=== PATIENT | male | born 1980 | race Hispanic/Latino ===

== ENCOUNTER 2017-09-16 19:45 | Emergency (ER) | payer OTHER ==
[2017-09-16 20:06] LABS: BASOPHILS % (AUTO) 0.4 % (0.0-5.0); EOSINOPHILS % (AUTO) 0.8 % (0.0-8.0); HEMATOCRIT 42.3 % (42-54); LYMPHOCYTES % (AUTO) 22.3 % (21.0-51.0); MEAN CORPUSCULAR HGB CONC 34.2 g/dL (32.0-36.0); MEAN CORPUSCULAR VOLUME 93.7 fL (79-99); MONOCYTES % (AUTO) 5.5 % (3.0-13.0); PLATELET COUNT (AUTO) 295 K/uL (130-400); RED BLOOD CELL COUNT(AUTO) 4.52 MIL/uL (4.50-6.20); RED CELL DISTRIBUTION WIDTH 13.9 % (11.0-15.5); WHITE BLOOD COUNT (AUTO) 8.8 K/uL (4.8-10.8)
[2017-09-16] MEDS ORDERED: NITROGLYCERIN 1GM/1 INCH PACKET TD ONE (20:08)
[2017-09-16] MEDS ORDERED: ASPIRIN 81MG TAB.CHEW ONE (20:08)
[2017-09-16 20:27] LABS: INR 0.96 (0.85-1.15); PARTIAL THROMBOPLASTIN TIME 30.3 SEC (26.3-35.5); PROTHROMBIN TIME 10.1 SEC (9.6-11.6)
[2017-09-16 20:39] LABS: ALBUMIN 4.1 g/dL (3.5-5.0); BILIRUBIN,TOTAL 0.4 mg/dL (0.2-1.0); CREATININE 1.2 mg/dL (0.5-1.5); TOTAL PROTEIN, SERUM 7.5 g/dL (6.0-8.3)
[2017-09-16 20:41] LABS: POTASSIUM 2.8 mmol/L (3.5-5.1)
[2017-09-16] MEDS ORDERED: SODIUM CHLORIDE 0.9% 1000ML 1,000 ML IV ONE (20:57)
[2017-09-16] MEDS ORDERED: POTASSIUM BICARB/CIT AC 25 MEQ TABLET.EFF ONE (20:57)
[2017-09-16 21:29] LABS: AMPHET/METH SCREEN,URINE NEGATIVE (NEGATIVE); BARBITURATE SCREEN, URINE NEGATIVE (NEGATIVE); BENZODIAZEPINES SCREEN,URINE NEGATIVE (NEGATIVE); CANNABINOID SCREEN,URINE NEGATIVE (NEGATIVE); COCAINE SCREEN,URINE NEGATIVE (NEGATIVE); OPIATE SCREEN,URINE NEGATIVE (NEGATIVE); PHENCYCLIDINE SCREEN,URINE NEGATIVE (NEGATIVE)
[2017-09-16] MEDS ORDERED: ACETAMINOPHEN 325 MG TAB ONE (23:24)
== END 2017-09-16 23:47 | disposition home or self-care (01) ==
LOC: EDH 19:45
DX: R07.89 Other chest pain (principal); E87.6 Hypokalemia; I10 Essential (primary) hypertension; J45.909 Unspecified asthma, uncomplicated; Z88.0 Allergy status to penicillin; Z72.0 Tobacco use
CPT/HCPCS: 36415; 71045; 80053; 80305; 82550; 82553; 83874; 84484 ×2; 85025; 85610; 85730; 93005 ×2; 94761; 99285; J7030

== ENCOUNTER 2019-05-26 23:29 | Emergency (ER) | payer OTHER ==
[2019-05-27] MEDS ORDERED: TETANUS/DIPHTHERIA TOXOID [ADULT] 0.5 ML VIAL IM ONE (00:16)
[2019-05-27] MEDS ORDERED: OCTYL 2-CYANOACRYLATE 1 EACH TP ONE (00:20)
[2019-05-27] MEDS ORDERED: ACETAMINOPHEN EXTRA STRENGTH 500 MG TABLET ONE (01:14)
== END 2019-05-27 01:21 | disposition home or self-care (01) ==
LOC: EDH 23:29
DX: S61.011A Laceration without foreign body of right thumb without damage to nail, initial encounter (principal); I10 Essential (primary) hypertension; J45.909 Unspecified asthma, uncomplicated; Z88.0 Allergy status to penicillin; X58.XXXA Exposure to other specified factors, initial encounter; Y93.89 Activity, other specified; Y92.098 Other place in other non-institutional residence as the place of occurrence of the external cause; Y99.8 Other external cause status
CPT/HCPCS: 12041; 73140; 90471; 90714

== ENCOUNTER 2021-04-28 20:59 | Emergency (ER) | payer OTHER ==
[~2021-04-28] VITALS: Ht 160 cm; Wt 97.5 kg
[2021-04-28 21:04] VITALS: BP 120/62
[2021-04-28] MEDS ORDERED: TETANUS/DIPHTHERIA TOXOID [ADULT] 0.5 ML VIAL IM ONE ×2 (21:09→21:30)
[2021-04-28] MEDS ORDERED: [UNRECOGNIZED DRUG - CODE] TP (21:16)
== END 2021-04-28 21:22 | disposition home or self-care (01) ==
LOC: EDH 20:59
DX: S61.214A Laceration without foreign body of right ring finger without damage to nail, initial encounter (principal); J45.909 Unspecified asthma, uncomplicated; I10 Essential (primary) hypertension; Z88.0 Allergy status to penicillin; Z79.899 Other long term (current) drug therapy; W26.0XXA Contact with knife, initial encounter; Y93.89 Activity, other specified; Y92.098 Other place in other non-institutional residence as the place of occurrence of the external cause; Y99.8 Other external cause status
CPT/HCPCS: 90471; 90714

== ENCOUNTER 2021-11-11 15:59 | Emergency (ER) | payer OTHER ==
[~2021-11-11] VITALS: Ht 157.5 cm; Wt 99.8 kg
[~2021-11-11 15:59] MED LIST: [UNRECOGNIZED DRUG - CODE] TP
[2021-11-11 16:05] VITALS: BP 145/85
[2021-11-11] MEDS ORDERED: KETOROLAC 30MG VIAL (30MG/ML) IM STA (17:11)
[2021-11-11] MEDS ORDERED: DEXAMETHASONE SOD PHOSPHATE 4 MG/ML 1ML VIAL IM STA (17:11)
[2021-11-11] MEDS ORDERED: PRED5TAB PO (17:42)
== END 2021-11-11 17:58 | disposition home or self-care (01) ==
LOC: EDH 15:59
DX: T63.441A Toxic effect of venom of bees, accidental (unintentional), initial encounter (principal); I10 Essential (primary) hypertension; J45.909 Unspecified asthma, uncomplicated; Z79.1 Long term (current) use of non-steroidal anti-inflammatories (NSAID); Z79.52 Long term (current) use of systemic steroids; Z88.0 Allergy status to penicillin; Y92.89 Other specified places as the place of occurrence of the external cause
CPT/HCPCS: 99284; 96372 ×2; J1100; J1885

== ENCOUNTER 2022-10-11 13:57 | Emergency (ER) | payer BC, OTHER ==
[~2022-10-11] VITALS: Ht 157.5 cm; Wt 100.7 kg
[~2022-10-11 13:57] MED LIST changes: +PRED5TAB PO
[2022-10-11] MEDS ORDERED: ASPIRIN 325MG TAB PO ONE (15:30)
[2022-10-11 15:32] LABS: BASOPHILS % (AUTO) 0.5 % (0.0-5.0); EOSINOPHILS % (AUTO) 3.3 % (0.0-8.0); HEMATOCRIT 43.5 % (42-54); LYMPHOCYTES % (AUTO) 22.6 % (21.0-51.0); MEAN CORPUSCULAR HEMOGLOBIN 31.1 pg (27.0-33.0); MEAN CORPUSCULAR HGB CONC 33.6 g/dL (32.0-36.0); MEAN CORPUSCULAR VOLUME 92.6 fL (79-99); MONOCYTES % (AUTO) 5.2 % (3.0-13.0); PLATELET COUNT (AUTO) 296 K/uL (130-400); WHITE BLOOD COUNT (AUTO) 8.2 K/uL (4.8-10.8)
[2022-10-11 16:01] LABS: CREATININE 1.2 mg/dL (0.5-1.5); POTASSIUM 3.9 mmol/L (3.5-5.1)
[2022-10-11 16:10] LABS: ALBUMIN 3.8 g/dL (3.5-5.0); TOTAL PROTEIN, SERUM 7.4 g/dL (6.0-8.3)
[2022-10-11 18:29] VITALS: BP 132/82; PULSE 66; RESP 18; O2SAT 98
== END 2022-10-11 18:28 | disposition home or self-care (01) ==
LOC: EDH 13:57
DX: R07.89 Other chest pain (principal); J06.9 Acute upper respiratory infection, unspecified; I10 Essential (primary) hypertension; Z79.52 Long term (current) use of systemic steroids; Z88.0 Allergy status to penicillin
CPT/HCPCS: 36415; 71045; 80053; 84484; 85025; 87804; 93005